=== PATIENT | female | born 1935 | race Caucasian/White ===

== ENCOUNTER 2018-08-12 14:39 | Observation (INO) | payer MEDICARE, OTHER ==
--- NOTE | 2018-08-12 14:57 | EDM.PDOC ---
ED HPI GENERAL MEDICAL PROBLEM - General Stated Complaint: POSSIBLE A FIB Time Seen by Provider: 08/12/18 14:39 Source of Information: Reports: Patient, Family History Limitations: Reports: Physical Impairment (dizziness, unable to ambulate ) - History of Present Illness INITIAL COMMENTS - FREE TEXT/NARRATIVE: 83 y.o.w.f with H/O COPD, came to the ED due to palpitations, Dizziness and weakness. Pt lives by herself, gets meals on wheels and has a nurse checking on her once a week. No C/P. She has occ SOB due to to her COPD. Her main concern is her weakness and dizziness. The dizziness get worse when she turns her head to he extreme left or right side. She has a hard time to ambulate due to gen weakness. No N/V/D or chest pain. No other acute medical issues. BP 130/72 RR 18 Pulse ox 93% on 2 liters O2 Temp 36.8 Pulse 95 Onset Date: 08/11/18 Onset Time: 09:00 Duration: Hour(s):, Intermittent Location: Reports: Head Quality: Reports: Other (dizzy, unable to ambulate) Severity: Moderate Improves with: Reports: Rest Worsens with: Reports: Movement Context: Reports: Other Associated Symptoms: Reports: Other (palpitations) - Related Data Allergies Allergy/AdvReac Type Severity Reaction Status Date / Time azithromycin Allergy Cannot Verified 08/12/18 14:51 Remember blueberry [Blueberry] Allergy Cannot Verified 08/12/18 14:51 Remember cefprozil [Cefprozil] Allergy Cannot Verified 08/12/18 14:51 Remember celecoxib [From Celebrex] Allergy Cannot Verified 08/12/18 14:51 Remember cephalexin [Cephalexin] Allergy Cannot Verified 08/12/18 14:51 Remember Cephalosporins Allergy SYSTEMIC Verified 08/12/18 14:51 SWELLING ciprofloxacin Allergy Rash Verified 08/12/18 14:51 clarithromycin [From Biaxin] Allergy Rash Verified 08/12/18 14:51 corn syrup Allergy Cannot Verified 08/12/18 14:51 Remember levofloxacin [From Levaquin] Allergy Rash Verified 08/12/18 14:51 naproxen sodium [From Aleve] Allergy Cannot Verified 08/12/18 14:51 Remember Penicillins Allergy Cannot Verified 08/12/18 14:51 Remember prednisone Allergy Cannot Verified 08/12/18 14:51 Remember Quinolones Allergy Cannot Verified 08/12/18 14:51 Remember shellfish derived Allergy Cannot Verified 08/12/18 14:51 Remember strawberry [Entriken] Allergy Cannot Verified 08/12/18 14:51 Remember Sulfa (Sulfonamide Allergy Rash Verified 08/12/18 14:51 Antibiotics) sulfamethoxazole Allergy Cannot Verified 08/12/18 14:51 [From Bactrim] Remember tetanus and diphtheria Allergy Cannot Verified 08/12/18 14:51 toxoids Remember [Tetanus&Diphtheria Toxoid] tramadol HCl [From Ultram] Allergy Rash Verified 08/12/18 14:51 trimethoprim [From Bactrim] Allergy Cannot Verified 08/12/18 14:51 Remember nitrospan Allergy Cannot Uncoded 08/12/18 14:51 Remember Home Meds: Home Meds Albuterol Sulfate [Albuterol Sulfate HFA] 2 puff INH QID PRN 09/17/13 [History] Ascorbic Acid [Vitamin C] 1,000 mg PO DAILY 09/17/13 [History] Aspirin [Adult Low Dose Aspirin EC] 81 mg PO DAILY 09/17/13 [History] Fish Oil/DHA/EPA [Fish Oil 1,200 MG] 2 cap PO DAILY 09/17/13 [History] Ipratropium/Albuterol Sulfate [Duoneb 0.5 MG-3 MG/3 ML] 3 ml INH QID PRN [History] Magnesium Oxide 400 mg PO DAILY 09/17/13 [History] Multivitamin [Multiple Vitamins] 1 each PO DAILY 09/17/13 [History] Mupirocin Calcium [Bactroban] 1 applic TOP ASDIRECTED PRN 09/17/13 [History] Omeprazole 20 mg PO DAILY 09/17/13 [History] Simvastatin [Zocor] 20 mg PO BEDTIME 09/17/13 [History] Vitamin B Complex [B Complex] 1 each PO DAILY 09/17/13 [History] Vitamin E 800 unit PO DAILY 09/17/13 [History] guaiFENesin/Codeine Phosphate [Guaifen-Codeine 100-10 mg/5 ml] 5 - 10 ml PO Q4H PRN 09/17/13 [History] Budesonide [Pulmicort] 0.5 mg IH BID 04/04/14 [History] Calcium Carb/Vitamin D3/Vit K1 [Calcium + Vit D & K Chew] 1 tab PO BEDTIME 04/04 [History] Lactobacillus Acidophilus [Acidophilus Probiotic] 1 mg PO DAILY 04/04/14 [ History] Ubidecarenone [Co Q-10] 100 mg PO DAILY 04/04/14 [History] Acetaminophen [Tylenol Extra Strength] 500 mg PO Q6H PRN 08/12/18 [History] Benzonatate 100 mg PO TID 08/12/18 [History] Cholecalciferol (Vitamin D3) [Vitamin D] 1,000 unit PO DAILY 08/12/18 [History] Docusate Sodium 100 mg PO BID 08/12/18 [History] Doxycycline [Doxycycline Hyclate] 100 mg PO DAILY 08/12/18 [History] Ipratropium Lindsay 21 mcg KADI BID MDD 2sprays twice daily 08/12/18 [History] Melatonin 3 mg PO BEDTIME 08/12/18 [History] Mirtazapine 15 mg PO BEDTIME 08/12/18 [History] Potassium Gluconate 99 mg PO DAILY 08/12/18 [History] Sodium Chloride for Inhalation [Sodium Chloride] 1 inh NEB BID 08/12/18 [History ] Umeclidinium Brm/Vilanterol Tr [Anoro Ellipta 62.5-25 MCG] 62.5 mcg IH DAILY [History] Past Medical History HEENT History: Reports: Cataract, Hard of Hearing, Other (See Below) Other HEENT History: 8 ear surgeries Cardiovascular History: Reports: IA, Stents Respiratory History: Reports: Asthma, COPD, SOB Gastrointestinal History: Reports: Chronic Constipation GREASE AND TALLOW PUMPER History: Reports: Other (See Below) Other GREASE AND TALLOW PUMPER History: hyesterectomy Musculoskeletal History: Reports: Arthritis, Fibromyalgia, Osteoarthritis, Osteoporosis Neurological History: Reports: TIA Psychiatric History: Reports: Depression Hematologic History: Reports: None Immunologic History: Reports: None Oncologic (Cancer) History: Reports: None Dermatologic History: Reports: None - Infectious Disease History Infectious Disease History: Reports: Chicken Pox, Pertussis (Whooping Cough), Shingles - Past Surgical History HEENT Surgical History: Reports: Cataract Surgery, Oral Surgery, Tonsillectomy, Visual Cardiovascular Surgical History: Reports: Other (See Below) Musculoskeletal Surgical History: Reports: Other (See Below) Social & Family History - Family History HEENT: Reports: Cataract Cardiac: Reports: IA Respiratory: Reports: Other (See Below) Other Respiratory Family Hisory: emphazyma OBGYN: Reports: Musculoskeletal: Reports: Arthritis, RA Endocrine/Metabolic: Reports: Diabetes, type II Oncologic: Reports: Esophageal, Lung - Caffeine Use Caffeine Use: Reports: Coffee, Tea ED ROS GENERAL - Review of Systems Review Of Systems: See Below Constitutional: Reports: Malaise, Weakness, Fatigue, Decreased Appetite HEENT: Reports: No Symptoms Respiratory: Reports: Shortness of Breath, Cough Cardiovascular: Reports: Palpitations Endocrine: Reports: No Symptoms GI/Abdominal: Reports: No Symptoms : Reports: No Symptoms Musculoskeletal: Reports: No Symptoms Skin: Reports: No Symptoms Neurological: Reports: Dizziness, Weakness Psychiatric: Reports: No Symptoms Hematologic/Lymphatic: Reports: No Symptoms Immunologic: Reports: No Symptoms ED EXAM, GENERAL - Physical Exam Exam: See Below Exam Limited By: Physical Impairment General Appearance: Alert, Mild Distress, Cachetic Eye Exam: Bilateral Eye: Nystagmus (bilateral, ) Ears: Normal External Exam Ear Exam: Bilateral Ear: Auricle Normal Nose: Normal Inspection, Normal Mucosa, No Blood Throat/Mouth: Normal Lips, Normal Voice, No Airway Compromise Head: Atraumatic, Normocephalic Neck: Normal Inspection, Supple, Non-Tender, Full Range of Motion Respiratory/Chest: Decreased Breath Sounds (H/O lung fibrosis), Wheezing Cardiovascular: Normal Peripheral Pulses Peripheral Pulses: 1+: Brachial (R) GI/Abdominal: Normal Bowel Sounds, Soft, Non-Tender, No Organomegaly, No Distention, No Abnormal Bruit, No Mass (Female) Exam: Deferred Rectal (Female) Exam: Deferred Back Exam: Normal Inspection, Full Range of Motion Extremities: Normal Inspection, Normal Range of Motion, Non-Tender, No Pedal Edema Neurological: Alert, Oriented, CN II-XII Intact, Normal Cognition, Abnormal Gait (due to weakness) Psychiatric: Normal Affect, Normal Mood Skin Exam: Warm, Dry, Intact, Normal Color, No Rash Lymphatic: No Adenopathy EKG INTERPRETATION EKG Date: 08/12/18 Time: 15:00 Rhythm: NSR Rate (Beats/Min): 111 (with intermittant PACs) [place]: Normal P-Wave: Present QRS: Normal ST-T: Normal QT: Normal Comparison: NA - No Prior EKG Course - Vital Signs Text/Narrative:: 83 y.o.w.f with H/O COPD, came to the ED due to palpitations, Dizziness and weakness. Pt lives by herself, gets meals on wheels and has a nurse checking on her once a week. No C/P. She has occ SOB due to to her COPD. Her main concern is her weakness and dizziness. The dizziness get worse when she turns her head to he extreme left or right side. She has a hard time to ambulate due to gen weakness. No N/V/D or chest pain. No other acute medical issues. BP 130/72 RR 18 Pulse ox 93% on 2 liters O2 Temp 36.8 Pulse 95 PE: Cachectic 83 y.o.w.f with COPD exacerbation, weakness and Vertigo Imaging: CXR: COPD/fibrosis, official report is pending. Labs: CBC/BMP neg except: WBC 15.5 HGB 11.2 BMP: CO2 36 reminder Impression: Elevated WBC, COPD exacerbation , Vertigo, Weakness, unable to ambulate Tx: Antivert, NS, Duoneb, Solu Medrol (pt is allergic to prednisone?) Reexam: Resp improved. Vertigo/dizziness did not improve Plan: Admit to [facility] Last Recorded V/S: Last Vital Signs Temp 36.8 C 08/12/18 18:09 Pulse 104 H 08/12/18 18:09 Resp 18 08/12/18 18:15 BP 129/51 L 08/12/18 18:15 Pulse Ox 94 L 08/12/18 18:15 - Orders/Labs/Meds Orders: Active Orders 24 hr Category Date Time Status CXR [Chest 1V Frontal] [CR] Stat Exams 08/12/18 14:55 Taken Sodium Chloride 0.9% [Normal Saline] 1,000 ml Med 08/12/18 18:07 Active IV .BOLUS EKG 12 Lead [EK] Routine Ther 08/12/18 14:56 Ordered EKG 12 Lead [EK] Routine Ther 08/12/18 15:58 Ordered Medication Orders Acetaminophen (Tylenol Extra Strength) 500 mg PO Q6H PRN PRN Reason: Pain Last Admin: 08/12/18 23:07 Dose: 500 mg Albuterol (Ventolin Hfa) gm INH QID PRN PRN Reason: Shortness of Breath Albuterol/Ipratropium (Duoneb 3.0-0.5 Mg/3 Ml) 3 ml INH QID PRN PRN Reason: Shortness of Breath Last Admin: 08/12/18 22:49 Dose: 3 ml Aspirin (Halfprin) 81 mg PO DAILY [facility] Benzonatate (Tessalon Perles) 100 mg PO TID [facility] Last Admin: 08/12/18 22:48 Dose: 100 mg Budesonide (Pulmicort) 0.5 mg INH BIDRT [facility] Last Admin: 08/12/18 22:48 Dose: 0.5 mg Coenzyme Q10 (Coenzyme Q10) 100 mg PO DAILY [facility] Docusate Sodium (Colace) 100 mg PO BID [facility] Last Admin: 08/12/18 22:42 Dose: 100 mg Sodium Chloride (Normal Saline) 1,000 mls @ 125 mls/hr IV .BOLUS ONE Stop: 08/13/18 02:06 Last Admin: 08/12/18 20:46 Dose: 125 mls/hr Ipratropium Lindsay (Atrovent 0.03% Nasal [place]) ml KADI BID [facility] Magnesium Oxide (Magnesium Oxide) 400 mg PO DAILY [facility] Melatonin (Melatonin) 3 mg PO BEDTIME [facility] Last Admin: 08/12/18 22:42 Dose: 3 mg Mirtazapine (Remeron) 15 mg PO BEDTIME [facility] Last Admin: 08/12/18 22:48 Dose: 15 mg Non-Formulary Medication (Ascorbic Acid [Vitamin C]) 1,000 mg PO DAILY [facility] Non-Formulary Medication (Calcium Carb/Vitamin D3/Vit K1 [Calcium + Vit D & K Chew]) 1 tab PO BEDTIME [facility] Last Admin: 08/12/18 22:55 Dose: Not Given Non-Formulary Medication (Cholecalciferol (Vitamin D3) [Vitamin D]) 1,000 unit PO DAILY [facility] Non-Formulary Medication (Doxycycline [Vibramycin]) 100 mg PO DAILY [facility] Non-Formulary Medication (Fish Oil/Dha/Epa [Fish Oil 1,200 Mg]) 2 cap PO DAILY [facility] Non-Formulary Medication (Lactobacillus Acidophilus [Acidophilus Probiotic]) 1 mg PO DAILY [facility] Non-Formulary Medication (Mupirocin Calcium [Bactroban]) 1 applic TOP ASDIRECTED PRN PRN Reason: cuts/alvarez Omeprazole [address] (CapsuleOwn Med) 20 mg PO ACBREAKFAST@0600 [facility] Non-Formulary Medication (Potassium Gluconate [Potassium Gluconate]) 99 mg PO DAILY [facility] Non-Formulary Medication (Vitamin B Complex [B Complex]) 1 each PO DAILY [facility] Non-Formulary Medication (Vitamin E [Vitamin E]) 800 unit PO DAILY [facility] Sodium Chloride 3% For InhalationOwn Med 1 inh INH BIDRT [facility] Last Admin: 08/12/18 22:48 Dose: 1 inh Simvastatin (Zocor) 20 mg PO BEDTIME [facility] Last Admin: 08/12/18 22:49 Dose: 20 mg Sodium Chloride (Saline Flush) 10 ml FLUSH ASDIRECTED PRN PRN Reason: Keep Vein Open Last Admin: 08/12/18 20:46 Dose: 10 ml Umeclidinium/Vilanterol (Anoro Ellipta 62.5-25 Mcg) 62.5 mcg IH DAILYRT [facility] Labs: Laboratory Tests 08/12/18 08/12/18 08/12/18 Range/Units 15:10 15:10 15:10 WBC 15.1 H (4.5-12.0) X10-3/uL RBC 3.52 (3.23-5.20) x10(6)uL Hgb 11.2 L (11.5-15.5) g/dL Hct 34.4 (30.0-51.3) % MCV 97.7 H (80-96) fL MCH 31.8 (27.7-33.6) pg MCHC 32.6 (32.2-35.4) g/dL RDW 13.9 (11.5-15.5) % Plt Count 471 H (125-369) X10(3)uL MPV 7.3 L (7.4-10.4) fL Neut % (Auto) 86.4 H (46-82) % Lymph % (Auto) 7.6 L (13-37) % [place] % (Auto) 5.4 (4-12) % Eos % (Auto) 1 (1.0-5.0) % Baso % (Auto) 0 (0-2) % Neut # (Auto) 13.1 H (1.6-8.3) # Lymph # (Auto) 1.1 (0.6-5.0) # [place] # (Auto) 0.8 (0.0-1.3) # Eos # (Auto) 0.1 (0.0-0.8) # Baso # (Auto) 0.0 (0.0-0.2) # Sodium 140 (135-145) mmol/L Potassium 4.5 (3.5-5.3) mmol/L Chloride 101 (100-110) mmol/L Carbon Dioxide 36 H (21-32) mmol/L BUN 13 (7-18) mg/dL Creatinine 0.6 (0.55-1.02) mg/dL Est Cr Clr Drug Dosing TNP Estimated GFR (MDRD) > 60 (>60) BUN/Creatinine Ratio 21.7 H (9-20) Glucose 106 (80-116) mg/dL Lactic Acid 0.9 (0.4-2.2) mmol/L Calcium 8.9 (8.6-10.2) mg/dL Urine Color (YELLOW) Urine Appearance (CLEAR) Urine pH (5.0-6.5) Ur Specific [place] (1.010-1.025) Urine Protein (NEGATIVE) mg/dL Urine Glucose (UA) (NEGATIVE) mg/dL Urine Ketones (NEGATIVE) mg/dL Urine Occult Blood (NEGATIVE) Urine Nitrite (NEGATIVE) Urine Bilirubin (NEGATIVE) Urine Urobilinogen (NEGATIVE) mg/dL Ur Leukocyte Esterase (NEGATIVE) Urine RBC (0) Urine WBC (0) Ur Squamous Epith Cells (NS,R,O) Amorphous Sediment Urine Bacteria (NS) 08/12/18 Range/Units 15:50 WBC (4.5-12.0) X10-3/uL RBC (3.23-5.20) x10(6)uL Hgb (11.5-15.5) g/dL Hct (30.0-51.3) % MCV (80-96) fL MCH (27.7-33.6) pg MCHC (32.2-35.4) g/dL RDW (11.5-15.5) % Plt Count (125-369) X10(3)uL MPV (7.4-10.4) fL Neut % (Auto) (46-82) % Lymph % (Auto) (13-37) % [place] % (Auto) (4-12) % Eos % (Auto) (1.0-5.0) % Baso % (Auto) (0-2) % Neut # (Auto) (1.6-8.3) # Lymph # (Auto) (0.6-5.0) # [place] # (Auto) (0.0-1.3) # Eos # (Auto) (0.0-0.8) # Baso # (Auto) (0.0-0.2) # Sodium (135-145) mmol/L Potassium (3.5-5.3) mmol/L Chloride (100-110) mmol/L Carbon Dioxide (21-32) mmol/L BUN (7-18) mg/dL Creatinine (0.55-1.02) mg/dL Est Cr Clr Drug Dosing Estimated GFR (MDRD) (>60) BUN/Creatinine Ratio (9-20) Glucose (80-116) mg/dL Lactic Acid (0.4-2.2) mmol/L Calcium (8.6-10.2) mg/dL Urine Color Yellow (YELLOW) Urine Appearance Slightly cloudy (CLEAR) Urine pH 9.0 H (5.0-6.5) Ur Specific [place] 1.020 (1.010-1.025) Urine Protein Negative (NEGATIVE) mg/dL Urine Glucose (UA) Normal (NEGATIVE) mg/dL Urine Ketones Negative (NEGATIVE) mg/dL Urine Occult Blood Negative (NEGATIVE) Urine Nitrite Negative (NEGATIVE) Urine Bilirubin Negative (NEGATIVE) Urine Urobilinogen Normal (NEGATIVE) mg/dL Ur Leukocyte Esterase Negative (NEGATIVE) Urine RBC 0-5 (0) Urine WBC 0-5 (0) Ur Squamous Epith Cells Occasional (NS,R,O) Amorphous Sediment Moderate Urine Bacteria Rare H (NS) Meds: Medications Generic Name Dose Route Start Last Admin Trade Name Freq PRN Reason Stop Dose Admin Acetaminophen 500 mg 08/12/18 20:37 08/12/18 23:07 Tylenol Extra Strength PO 500 mg Q6H PRN Administration Pain Albuterol gm 08/12/18 20:37 Ventolin Hfa INH QID PRN Shortness of Breath Albuterol/Ipratropium 3 ml 08/12/18 20:37 08/12/18 22:49 Duoneb 3.0-0.5 Mg/3 Ml INH 3 ml QID PRN Administration Shortness of Breath Aspirin 81 mg 08/13/18 09:00 Halfprin PO DAILY [facility] Benzonatate 100 mg 08/12/18 21:00 08/12/18 22:48 Tessalon Perles PO 100 mg TID [facility] Administration Budesonide 0.5 mg 08/12/18 22:30 08/12/18 22:48 Pulmicort INH 0.5 mg BIDRT [facility] Administration Coenzyme Q10 100 mg 08/13/18 09:00 Coenzyme Q10 PO DAILY [facility] Docusate Sodium 100 mg 08/12/18 21:00 08/12/18 22:42 Colace PO 100 mg BID [facility] Administration Sodium Chloride 1,000 mls @ 125 mls/hr 08/12/18 18:07 08/12/18 20:46 Normal Saline IV 08/13/18 02:06 125 mls/hr .BOLUS ONE Administration Ipratropium Lindsay ml 08/12/18 21:00 Atrovent 0.03% Nasal [place] KADI BID [facility] Magnesium Oxide 400 mg 08/13/18 09:00 Magnesium Oxide PO DAILY [facility] Melatonin 3 mg 08/12/18 21:00 08/12/18 22:42 Melatonin PO 3 mg BEDTIME [facility] Administration Mirtazapine 15 mg 08/12/18 22:45 08/12/18 22:48 Remeron PO 15 mg BEDTIME [facility] Administration Non-Formulary Medication 1,000 mg 08/13/18 09:00 Ascorbic Acid [Vitamin C] PO DAILY [facility] Non-Formulary Medication 1 tab 08/12/18 21:00 08/12/18 22:55 Calcium Carb/Vitamin D3/Vit K1 [Calcium + Vit D & K Chew] PO Not Given BEDTIME [facility] Non-Formulary Medication 1,000 unit 08/13/18 09:00 Cholecalciferol (Vitamin D3) [Vitamin D] PO DAILY [facility] Non-Formulary Medication 100 mg 08/13/18 09:00 Doxycycline [Vibramycin] PO DAILY [facility] Non-Formulary Medication 2 cap 08/13/18 09:00 Fish Oil/Dha/Epa [Fish Oil 1,200 Mg] PO DAILY [facility] Non-Formulary Medication 1 mg 08/13/18 09:00 Lactobacillus Acidophilus [Acidophilus Probiotic] PO DAILY [facility] Non-Formulary Medication 1 applic 08/12/18 20:37 Mupirocin Calcium [Bactroban] TOP ASDIRECTED PRN cuts/alvarez Omeprazole [address] 20 mg 08/13/18 06:00 CapsuleOwn Med PO ACBREAKFAST@0600 [facility] Non-Formulary Medication 99 mg 08/13/18 09:00 Potassium Gluconate [Potassium Gluconate] PO DAILY [facility] Non-Formulary Medication 1 each 08/13/18 09:00 Vitamin B Complex [B Complex] PO DAILY [facility] Non-Formulary Medication 800 unit 08/13/18 09:00 Vitamin E [Vitamin E] PO DAILY [facility] Sodium Chloride 3% 1 inh 08/12/18 22:45 08/12/18 22:48 For InhalationOwn INH 1 inh Med BIDRT [facility] Administration Simvastatin 20 mg 08/12/18 22:45 08/12/18 22:49 Zocor PO 20 mg BEDTIME [facility] Administration Sodium Chloride 10 ml 08/12/18 20:20 08/12/18 20:46 Saline Flush FLUSH 10 ml ASDIRECTED PRN Administration Keep Vein Open Umeclidinium/Vilanterol 62.5 mcg 08/13/18 07:00 Anoro Ellipta 62.5-25 Mcg IH DAILYRT [facility] Discontinued Medications Generic Name Dose Route Start Last Admin Trade Name Freq PRN Reason Stop Dose Admin Budesonide 0.5 mg 08/12/18 21:00 08/12/18 23:04 Pulmicort INH Not Given BID [facility] Meclizine HCl 25 mg 08/12/18 15:55 08/12/18 17:15 Antivert PO 08/12/18 15:56 25 mg ONETIME ONE Administration Non-Formulary Medication 1 inh 08/12/18 21:00 08/12/18 23:04 Sodium Chloride For Inhalation [Sodium Chloride] NEB Not Given BID [facility] Simvastatin 20 mg 08/12/18 21:00 08/12/18 23:04 Zocor PO Not Given BEDTIME [facility] Simvastatin 20 mg 08/12/18 22:26 Zocor PO BEDTIME [facility] Departure - Departure Time of Disposition: 18:15 Disposition: Refer to Observation Condition: Fair Clinical Impression: Vertigo, Unable to ambulate - Discharge Information - My Orders Last 24 Hours: My Active Orders 08/12/18 14:55 CXR [Chest 1V Frontal] [CR] Stat 08/12/18 14:56 EKG 12 Lead [EK] Routine 08/12/18 15:58 EKG 12 Lead [EK] Routine 08/12/18 18:07 Sodium Chloride 0.9% [Normal Saline] 1,000 ml IV .BOLUS - Assessment/Plan Last 24 Hours: My Active Orders 08/12/18 14:55 CXR [Chest 1V Frontal] [CR] Stat 08/12/18 14:56 EKG 12 Lead [EK] Routine 08/12/18 15:58 EKG 12 Lead [EK] Routine 08/12/18 18:07 Sodium Chloride 0.9% [Normal Saline] 1,000 ml IV .BOLUS
[2018-08-12] MEDS ORDERED: Meclizine 25 MG Tab PO ONE (15:55)
[2018-08-12] MEDS ORDERED: Sodium Chloride 0.9% 1,000 ML IV ONE (18:07)
[2018-08-12] MEDS ORDERED: Sodium Chloride 0.9% 10 ML Syringe FLUSH PRN (20:20)
[2018-08-12] MEDS ORDERED: MUPIROCIN CALCIUM TOP PRN (20:37)
[2018-08-12] MEDS ORDERED: Albuterol 8 GM Inhaler INH PRN (20:37)
[2018-08-12] MEDS ORDERED: Acetaminophen 500 MG Tab PO PRN (20:37)
[2018-08-12] MEDS ORDERED: [UNRECOGNIZED DRUG - OTHER] NEB SCH (21:00)
[2018-08-12] MEDS ORDERED: VIT K1 PO SCH (21:00)
[2018-08-12] MEDS ORDERED: VITAMIN D3 PO SCH (21:00)
[2018-08-12] MEDS ORDERED: Budesonide 0.5 MG/2 ML Neb Susp INH SCH (21:00)
[2018-08-12] MEDS ORDERED: SODIUM CHLORIDE FOR INHALATION NEB SCH (21:00)
[2018-08-12] MEDS ORDERED: [UNRECOGNIZED DRUG - OTHER] PO SCH (21:00)
[2018-08-12] MEDS ORDERED: Simvastatin 40 MG Tab PO SCH (21:00)
[2018-08-12] MEDS ORDERED: CALCIUM CARB PO SCH (21:00)
[2018-08-12] MEDS ORDERED: Simvastatin 20 MG Tab**OWN MED PO SCH (22:26)
[2018-08-12] MEDS: Melatonin 3 MG Tab PO SCH (22:42)
[2018-08-12] MEDS: Docusate Sodium 100 MG Cap PO SCH (22:42)
[2018-08-12] MEDS: Mirtazapine 15 MG Tab**OWN MED PO SCH (22:48)
[2018-08-12] MEDS: BENZONATATE 100 MG PO SCH (22:48)
[2018-08-12] MEDS: SODIUM CHLORIDE 3% INH SCH (22:48)
[2018-08-12] MEDS: Budesonide 0.5 MG/2 ML Neb Susp**OWN MED INH SCH (22:48)
[2018-08-12] MEDS: Albuterol/Ipratropium 3.0-0.5 MG/3 ML Neb Soln**OWN MED INH PRN (22:49)
[2018-08-12] MEDS: Simvastatin 20 MG Tab**OWN MED PO SCH (22:49)
[2018-08-13] MEDS ORDERED: methylPREDNISolone Sodium Succinate 125 MG/2 ML SDV IVPUSH ONE (00:51)
[2018-08-13] MEDS: OMEPRAZOLE 20 MG PO SCH (05:43)
[2018-08-13] MEDS: VILANTEROL TR IH SCH (06:22)
[2018-08-13] MEDS: UMECLIDINIUM BRM IH SCH (06:22)
[2018-08-13] MEDS: SODIUM CHLORIDE 3% INH SCH ×2 (06:23→20:40)
[2018-08-13] MEDS: Budesonide 0.5 MG/2 ML Neb Susp**OWN MED INH SCH ×2 (06:23→21:42)
[2018-08-13] MEDS ORDERED: DHA PO SCH (09:00)
[2018-08-13] MEDS ORDERED: VITAMIN E 800 UNIT PO SCH (09:00)
[2018-08-13] MEDS ORDERED: FISH OIL PO SCH (09:00)
[2018-08-13] MEDS ORDERED: LACTOBACILLUS ACIDOPHILUS PO SCH (09:00)
[2018-08-13] MEDS ORDERED: EPA PO SCH (09:00)
[2018-08-13] MEDS ORDERED: Non-Formulary Medication 1 Each (Potassium Gluconate [Potassium Gluconate] 99 MG) PO SCH (09:00)
[2018-08-13] MEDS ORDERED: Magnesium Oxide 400 MG Tab PO SCH (09:00)
[2018-08-13] MEDS ORDERED: Non-Formulary Medication 1 Each (Ascorbic Acid [Vitamin C] 1,000 MG) PO SCH (09:00)
[2018-08-13] MEDS ORDERED: Non-Formulary Medication 1 Each (Cholecalciferol (Vitamin D3) [Vitamin D] 1,000 UNIT) PO SCH (09:00)
[2018-08-13] MEDS ORDERED: VITAMIN B COMPLEX PO SCH (09:00)
[2018-08-13] MEDS: Docusate Sodium 100 MG Cap PO SCH (09:32)
[2018-08-13] MEDS: BENZONATATE 100 MG PO SCH ×3 (09:33→20:39)
[2018-08-13] MEDS: DOXYCYCLINE 100 MG PO SCH (09:34)
[2018-08-13] MEDS: Aspirin 81 MG Tab.EC PO SCH (09:34)
--- NOTE | 2018-08-13 10:50 | HP ---
ADMISSION DATE: 08/12/2018 CHIEF COMPLAINT: Palpitations, regular heart beat, weakness. HISTORY OF PRESENT ILLNESS: Angela Hernández is an 83-year-old female, who resides in [facility], was seen at [facility] on 08/12/2018. Had a good weekend with her son, traveled up from [facility] there, spent the weekend. Mid afternoon, maybe 1 o'clock or so, noted sense that she was little short of breath and noted her heart was racing. She checked her oxygen monitor and heart rate was in the 130s, though oxygen level was reasonable at 91, i.e. underlying COPD. Was watchful for a short time. Not lightheaded, fatigable, little tired. She was brought to the hospital for intervention and review. While in the ER, symptoms were noted. Blood pressure was 130/72, pulse was 95, though documentably higher on EKG 111 with sinus arrhythmia. LABORATORY DATA: Laboratory studies performed, CBC: Hemoglobin little low at 11.2, white count 51,100, platelets 471. Normal indices. Electrolytes satisfactory except for elevated CO2 at 36, calcium was fine. GFR greater than 60. Urine unremarkable. Chest x-ray without complaint. MEDICATIONS ON ADMISSION: Please see med recon list. ALLERGIES: Multiple allergies clearly defined; azithromycin, blueberries, Celebrex, cephalexin, cephalosporins, ciprofloxacin, Biaxin, corn syrup, levofloxacin, naproxen, penicillin, prednisone, quinolones, shellfish, strawberries, sulfa, tetanus and diphtheria, tramadol, trimethoprim, Nitrospan. PAST MEDICAL HISTORY: Significant for previous bowel obstruction surgery, hysterectomy, and oophorectomy. Chronic illnesses include hypertension and underlying COPD. SOCIAL HISTORY: [facility] resident. about a year now. Two adopted children; son 50, daughter 54; 6 grand kids; 3 great grand kids. Retired. Remote long-term heavy smoker. No alcohol consumption. No illicit drug use. FAMILY HISTORY: Negative for early heart disease, diabetes mellitus, or inheritable cancers. REVIEW OF SYSTEMS: CONSTITUTIONAL: Feeling better this morning. Little less winded. EYES: Sees well. EARS: Hears well. Has limited hearing aids present. OROPHARYNX: Intact dentition. CARDIAC: Denies chest pain, palpitations, or syncope. RESPIRATORY: Chronic cough, wheezing, shortness of breath. GI: Regular predictable stools, no blood in stools. GENITOURINARY: Good voiding pattern. No blood in urine. SKIN: No lesions, eruptions, or moles. ENDOCRINE: No excessive thirst or urination. ALLERGY: No chronic cough. PSYCHIATRIC: Mood stable. PHYSICAL EXAMINATION: VITAL SIGNS: 36.5, pulse irregularly irregular at 98, 88/44, mean blood pressure 61, respirations 20, 98% on 3.5 L. GENERAL: Petite young lady, cooperative, conversant. Gives a good history. HEENT: Reveal funduscopic benign. Bright TMs. Clear nasal discharge. Mouth and oropharynx clear. NECK: Benign. Thyroid small. CHEST: Clear in all lung pineda. No adventitious sounds. HEART: No ectopy or murmur. Irregularly irregular. BREASTS: Symmetric. Atrophic without masses. ABDOMEN: Benign. Surgical scars well healed. No hepatosplenomegaly. AND RECTAL: Deferred. EXTREMITIES: Well perfused. Good peripheral pulses diminished, but intact forefoot deformity. Reflex symmetric. Sensation normal. Laboratory studies noted. ASSESSMENT: Palpitations. Irregular heartbeat. No signs of atrial fibrillation, tachyarrhythmia, likely secondary to underlying chronic obstructive pulmonary disease. SECONDARY DIAGNOSES: 1. Chronic obstructive pulmonary disease. 2. Previous bowel obstruction with surgical intervention. 3. Previous hysterectomy and oophorectomy. 4. Allergies by the dozens. PLAN: Admission to hospital indicated. Continue aggressive fluid hydration. Monitoring and intervention, low blood pressure dictates little opportunities for rate control with metoprolol or Verapamil timing care and treatment. /[id number] /[id number]
[2018-08-13] MEDS: Albuterol/Ipratropium 3.0-0.5 MG/3 ML Neb Soln**OWN MED INH PRN ×2 (11:24→21:03)
[2018-08-13] MEDS: Ipratropium 0.03% Nasal Spray 30 ML Bot NAS SCH ×2 (12:07→21:42)
[2018-08-13] MEDS: Mirtazapine 15 MG Tab**OWN MED PO SCH (20:38)
[2018-08-13] MEDS: Simvastatin 20 MG Tab**OWN MED PO SCH (20:38)
[2018-08-13] MEDS: Melatonin 3 MG Tab PO SCH (21:43)
[2018-08-14] MEDS: OMEPRAZOLE 20 MG PO SCH (06:36)
[2018-08-14] MEDS: SODIUM CHLORIDE 3% INH SCH (06:37)
[2018-08-14] MEDS: UMECLIDINIUM BRM IH SCH (06:40)
[2018-08-14] MEDS: VILANTEROL TR IH SCH (06:40)
[2018-08-14] MEDS: Budesonide 0.5 MG/2 ML Neb Susp**OWN MED INH SCH (06:40)
[2018-08-14] MEDS: Ipratropium 0.03% Nasal Spray 30 ML Bot NAS SCH (08:37)
[2018-08-14] MEDS: Aspirin 81 MG Tab.EC PO SCH (08:39)
[2018-08-14] MEDS: DOXYCYCLINE 100 MG PO SCH (08:39)
[2018-08-14] MEDS: BENZONATATE 100 MG PO SCH ×2 (08:44→16:40)
--- NOTE | 2018-08-14 11:10 | DISCH ---
DISCHARGE DATE: 08/14/2018 HISTORY OF PRESENT ILLNESS: Angela Hernández is an 83-year-old female admitted to [facility] on 08/12/18. She presented with mid morning, about 1 o'clock, a sense of a little shortness of breath, heart racing, oxygen meter noted heart rate in 130s, and oxygen level was good at 91. Is on longstanding O2 for COPD. Seen at [facility]. Laboratory studies were performed. No signs of infarct. No signs of complicating issue, admitted to the hospital for treatment and observation. Medications were adjusted accordingly. CT performed due to dizzy spells was negative. EKG revealed sinus rhythm with frequent PACs, benign. LABORATORY STUDIES: White count 15,100, hemoglobin 11.2, platelets 471,000, normal indices. Electrolytes satisfactory. GFR greater than 40, lactic acid 0.9. Urine was unremarkable. Chest x-ray noted general opacification and changes consistent with COPD, no acute infection of consequence. She was monitored during her hospital stay. Telemetry, there were episodes of tachyarrhythmia, problem is issue of her low blood pressure. Attempts to do beta blockers or calcium channel blockers were met with lack of success due to intolerance of blood pressure. Caffeine limited or absent, moderated, making home adjustments and activity with moderation. DISCHARGE MEDICATIONS: Medications were reviewed and appropriate. Discharged home on: 1. Albuterol 2 puffs q.i.d. p.r.n. 2. DuoNeb t.i.d. p.r.n. 3. 81 mg baby aspirin. 4. Tessalon Perles 100 mg t.i.d. cough. 5. Pulmicort b.i.d. inhalation. 6. Coenzyme Q10 100 mg one daily. 7. Atrovent nasal spray 2 puffs each nostril once daily. 8. Melatonin 3 mg p.o. at bedtime, sleep enhancement. 9. Omeprazole 20 mg one p.o. daily, GERD. 10.Potassium gluconate 99 mg one p.o. daily, hypokalemia. 11.Zocor 20 mg one p.o. daily, hyperlipidemia. 12.Anoro Ellipta as directed. 13.Docusate 100 mg b.i.d. constipation. 14.Magnesium oxide 400 mg one p.o. daily, nutrition. 15.Good adult multivitamin. 16.Ascorbic acid. 17.Vitamin D. 18.Fish oil. 19.Lactobacillus. 20.Vitamin E. EXAM ON DISCHARGE: VITAL SIGNS: 36.5, pulse 109 and irregular, 106/50, 74, 22, 100% on 3.5 L. GENERAL: Appears comfortable. Speech is a little bit gated. ENT: Mouth and oropharynx clear. NECK: Benign. Thyroid small. CHEST: Coarse rhonchi at both bases. Increased AP diameter. Prolonged expiratory phase. HEART: Sounds distant with sinus rhythm with frequent PACs. EXTREMITIES: Well perfused. ABDOMEN: Benign. ASSESSMENT: Palpitations, benign premature atrial contractions. PLAN: Again, intolerance to beta blockers or calcium channel blockers, not a good candidate for digoxin therapy or any other indication for digoxin therapy. Caffeine with moderation. Activity as tolerated, slower is better. Will follow up with Dr. Junior in 2 weeks' time. /[id number] /ARNALDO CC: Copy faxed to Michael Junior MD on 08/14/[address] [facility]
[2018-08-14 13:06] VITALS: BP 100/50
== END 2018-08-14 15:20 | disposition home or self-care (01) ==
LOC: FB.ED 14:39 → FB.MS 18:09
PROVIDERS: ADMIT Family Medicine; ATTEND Family Medicine
DX: R00.2 Palpitations (principal); J44.9 Chronic obstructive pulmonary disease, unspecified; Z99.81 Dependence on supplemental oxygen; Z88.0 Allergy status to penicillin; Z88.1 Allergy status to other antibiotic agents; Z88.2 Allergy status to sulfonamides; Z88.5 Allergy status to narcotic agent; Z88.6 Allergy status to analgesic agent; Z88.7 Allergy status to serum and vaccine; Z88.8 Allergy status to other drugs, medicaments and biological substances; Z91.013 Allergy to seafood; Z91.018 Allergy to other foods
CPT/HCPCS: 36415; 70450; 71045; 80048; 81001; 83605; 85025; 93005; 94640; 96361; 96374; 99285; A9270-GY; G0378; J2930; J7030; J7620-GY